=== PATIENT | male | born 1970 | race Caucasian/White ===

== ENCOUNTER 2021-09-06 22:06 | Emergency (ER) | payer SELFPAY ==
[2021-09-06] MEDS ORDERED: MEDROL 4MG DOSEP4 MG PO (23:05)
== END 2021-09-06 23:20 | disposition home or self-care (01) ==
LOC: FER 22:06
DX: R21 Rash and other nonspecific skin eruption (principal); F17.200 Nicotine dependence, unspecified, uncomplicated; Z88.0 Allergy status to penicillin
CPT/HCPCS: 99282; J3301

== ENCOUNTER 2021-12-05 06:42 | Emergency (ER) | payer SELFPAY ==
[~2021-12-05 06:42] MED LIST: MEDROL 4MG DOSEP4 MG PO
[2021-12-05 06:59] LABS: BASOPHIL 0.8 % (0-2); HCT 40.2 % (42.0-52.0); HGB 13.6 g/dl (13.2-18.0); MCH 35.1 pg (25.0-31.0); MCHC 33.8 g/dL (32.0-36.0); MCV 103.9 fL (78.0-100.0); MONOCYTE 9.6 % (0-12); MPV 9.2 fL (6.0-9.5); NEUTROPHIL 38.7 % (41-80); NRBC 0; PLT 200 K/uL (150-400); RBC 3.87 M/uL (4.70-6.00); RDW 13.7 % (11.5-14.0); WBC 6.4 K/uL (4.0-10.5)
[2021-12-05 10:09] LABS: CREATININE 0.85 mg/dL (0.67-1.17); POTASSIUM 4.1 mmol/L (3.5-5.1)
[2021-12-05 10:12] LABS: ALBUMIN 3.2 g/dL (3.4-5.0); BILIRUBIN - TOTAL 0.3 mg/dL (0.2-1.0); GLOBULIN (CALCULATION) 2.9 g/dL; TOTAL PROTEIN 6.1 g/dL (6.4-8.2)
== END 2021-12-05 12:12 | disposition home or self-care (01) ==
LOC: FER 06:42
PROVIDERS: Emergency Medicine
DX: S01.01XA Laceration without foreign body of scalp, initial encounter (principal); S30.1XXA Contusion of abdominal wall, initial encounter; S20.229A Contusion of unspecified back wall of thorax, initial encounter; S30.0XXA Contusion of lower back and pelvis, initial encounter; S50.311A Abrasion of right elbow, initial encounter; R42 Dizziness and giddiness; F17.200 Nicotine dependence, unspecified, uncomplicated; V23.4XXA Motorcycle driver injured in collision with car, pick-up truck or van in traffic accident, initial encounter
CPT/HCPCS: 36415; 70450; 71260; 72125; 72128; 72131; 80053; 83690; 85025; 96361; 96374; J3411; J3475; J7030; J7120; Q9967